=== PATIENT | female | born 1955 | race Caucasian/White ===

== ENCOUNTER → 2020-10-30 10:54 | Outpatient (BNVA) | payer BC, SELFPAY | PROVIDERS: Family Provider Family Medicine; Referring Provider Family Medicine; Visit Provider Orthopaedic Surgery | DX: M75.02 Adhesive capsulitis of left shoulder (principal) | CPT/HCPCS: 73030 ==

== ENCOUNTER 2020-11-06 06:00 | Outpatient (RCR) | payer BC, SELFPAY | END 2020-11-11 23:59 | disposition home or self-care (01) | LOC: MPT 06:00 | PROVIDERS: PCP Family Medicine; Referring Provider Orthopaedic Surgery; Visit Provider Orthopaedic Surgery | DX: M75.02 Adhesive capsulitis of left shoulder (principal) | CPT/HCPCS: 97110; 97161 ==

== ENCOUNTER 2020-11-12 06:00 | Outpatient (RCR) | payer BC, SELFPAY | END 2020-12-09 23:59 | disposition home or self-care (01) | LOC: MPT 06:00 | PROVIDERS: PCP Family Medicine; Referring Provider Orthopaedic Surgery; Visit Provider Orthopaedic Surgery | DX: M75.02 Adhesive capsulitis of left shoulder (principal) | CPT/HCPCS: 97110; 97140; G0283 ==

== ENCOUNTER 2020-12-10 06:00 | Outpatient (RCR) | payer BC, SELFPAY | END 2021-01-09 23:59 | disposition home or self-care (01) | LOC: MPT 06:00 | PROVIDERS: PCP Family Medicine; Referring Provider Orthopaedic Surgery; Visit Provider Orthopaedic Surgery | DX: M75.02 Adhesive capsulitis of left shoulder (principal) | CPT/HCPCS: 97110; 97140 ==

== ENCOUNTER → 2021-04-12 09:53 | Outpatient (BNVA) | payer BC, SELFPAY | PROVIDERS: PCP Family Medicine; Referring Provider Orthopaedic Surgery; Visit Provider Orthopaedic Surgery | DX: Z20.822 Contact with and (suspected) exposure to COVID-19 (principal) | CPT/HCPCS: 87635 ==

== ENCOUNTER 2024-04-07 09:39 | Emergency (ER) | payer BC, SELFPAY ==
[2024-04-07 09:40] VITALS: BP 161/71; PULSE 71; RESP 18; TEMP 36.8; O2SAT 97; BMI 37.9
--- NOTE | 2024-04-07 10:02 | ED_ITS ---
HPI - Back Pain/Injury General: Chief Complaint: Back Pain/Injury Stated Complaint: back pain Time Seen by Provider: 04/07/24 09:42 History of Present Illness: 68-year-old female with history of froze n shoulder, diabetes, hypertension and GERD who presents to the emergency room with left upper back pain. She says this started after a fall a couple days ago. She said she went to step over her large dog who stood up at the same time and it knocked her over. She already had issues with her shoulder/frozen shoulder and so had a hard time catching herself. She landed on that left side. No head injury. She has had no loss of consciousness. No altered mental status. No focal motor deficits. She has a bruise on her hand from the fall. She said she started out having pain in the shoulder and then it moved over to her neck and then started to go down her back. She said she was able to rub on her shoulder and neck and make the pain better but when it got into her back this morning she can rub it and it became very bad. Says it hurt with movement. It felt like a muscle cramp in her back. On exam she has tenderness in the left back muscles. No shortness of breath. No pain with breathing. Review of Systems Narrative: Constitutional symptoms: Negative except as documented in HPI. Skin symptoms: Negative except as documented in HPI. Eye symptoms: Negative except as documented in HPI. ENMT symptoms: Negative except as documented in HPI. Respiratory symptoms: Negative except as documented in HPI. Cardiovascular symptoms: Negative except as documented in HPI. Gastrointestinal symptoms: Negative except as documented in HPI. Genitourinary symptoms: Negative except as documented in HPI. Musculoskeletal symptoms: Negative except as documented in HPI. Neurologic symptoms: Negative except as documented in HPI. Psychiatric symptoms: Negative except as documented in HPI. Endocrine symptoms: Negative except as documented in HPI. [facility] ED PFSH: Medical History Asthma Breast cancer, left 2016/2016 Diabetes Hearing loss HTN (hypertension) Hyperlipidemia Peripheral neuropathy Type 2 diabetes mellitus Surgical History History of colonoscopy History of knee surgery Social History Smoking and tobacco/nicotine status: never used tobacco/nicotine Alcohol intake: never Substance/Drug Use: never Physical Exam Narrative: EXAM NARRATIVE: General: Alert, no acute distress. Skin: Warm, dry. Head: Normocephalic, atraumatic. Neck: Supple, trachea midline. Eye: Extraocular movements are intact. Ears, nose, mouth and throat: mucosa moist. Cardiovascular: Regular, Normal peripheral perfusion. Respiratory: Lungs are clear to auscultation, respirations are non-labored, breath sounds are equal, Symmetrical chest wall expansion. Gastrointestinal: Soft, Nontender, Non distended Musculoskeletal: Normal ROM, no deformity. Back: No bony tenderness. No step-offs. There is some midthoracic left-sided muscle tenderness to palpation. Neurological: Alert and oriented, No focal neurological deficit observed. Psychiatric: Cooperative, appropriate mood & affect. Course Vital Signs: Vital signs: Vital Signs Temperature 98.3 F 04/07/24 09:40 Pulse Rate 71 04/07/24 09:40 Respiratory Rate 18 04/07/24 09:40 Blood Pressure 161/71 04/07/24 09:40 Pulse Oximetry 97 04/07/24 09:40 Oxygen Delivery Me thod Room Air 04/07/24 09:40 MDM - Back Pain/Injury Medical Decision Making Assessment and plan: Thoracic back pain after a fall ?Decadron and Toradol low-dose here. Home on diclofenac and muscle relaxer. - Discharged home - Discussed plan with patient. Answered any questions. - Evaluation and treatment of this problem were appropriate in the emergency setting. All radiology interpretation(s) finalized by discharge Discharge Plan Discharge Patient Disposition: Home Clinical Impression: Thoracic back pain Qualifiers: Chronicity: acute Back pain laterality: left Qualified Code(s): M54.6 - Pain in thoracic spine Fall Qualifiers: Encounter type: initial encounter Qualified Code(s): W19.XXXA - Unspecified fall, initial encounter Condition: Stable Prescriptions: New cyclobenzaprine 10 mg tablet 10 mg PO Q8H Qty: 20 0RF diclofenac sodium 50 mg tablet,delayed release (DR/EC) 50 mg PO Q12H Qty: 20 0RF No Action (DME) pen needle, diabetic [Comfort EZ Pen [place]] 32 gauge x 3/16 needle See Rx Instructions .ROUTE .MEDSUPPLY Qty: 50 Rx Instructions: As directed nystatin 100,000 unit/gram cream 1 applic topical DAILY Humalog KwikPen Insulin 200 unit/mL (3 mL) insulin pen 40 unit SUBCUT BID Levemir FlexTouch U100 Insulin 100 unit/mL (3 mL) insulin pen 100 unit SUBCUT DAILY pantoprazole [Protonix] 40 mg tablet,delayed release (DR/EC) 40 mg PO DAILY losartan 100 mg tablet 100 mg PO DAILY gabapentin 300 mg capsule 300 mg PO DAILY amlodipine 5 mg tablet 5 mg PO DAILY naproxen 500 mg tablet 500 mg PO BID Qty: 60 0RF naproxen 500 mg tablet 500 mg PO BID Qty: 60 0RF Discharge Orders: Discharge ED (Routine); Ordered 04/07/24 Ordered By: Connie Mora Referrals: Jamal Alberto DO [Primary Care Provider] - Discharge Diet: Usual diet Discharge Activity: Increase activity as tolerated Patient Instructions: Pain Management Activity Restrictions/Additional Instructions: Thank you for choosing [facility] for your healthcare needs today. Please realize this is an emergency room and that we are providing you with a medical screening exam and this may not be complete and all inclusive of all the testing and or work up that you may need to determine your ailment or severity of your illness. You have been screened and evaluated and felt safe for discharge. Health conditions do change or evolve sometimes and as such it is important that you follow up with your Primary Doctor to be re checked, 3-5 days is a general good time frame for follow up. You are always welcome to return to the ED for re assessment if your symptoms are worsening or you have new concerns Coding Level of Care Code ED Clerk Operator for Leticia Morocho
[2024-04-07] MEDS: ketorolac 30 mg/mL INJ 15 MG IVP (10:04)
[2024-04-07 10:10] VITALS: BP 161/71; PULSE 63; O2SAT 97
== END 2024-04-07 10:39 | disposition home or self-care (01) ==
PROVIDERS: Emergency Provider Emergency Medicine; PCP Family Medicine
DX: M54.6 Pain in thoracic spine (principal); Z79.4 Long term (current) use of insulin; Z85.3 Personal history of malignant neoplasm of breast; E11.42 Type 2 diabetes mellitus with diabetic polyneuropathy; I10 Essential (primary) hypertension; E78.5 Hyperlipidemia, unspecified
CPT/HCPCS: 96374; 99285; J1885

== ENCOUNTER 2024-04-16 08:09 | Emergency (ER) | payer BC, SELFPAY ==
[2024-04-16] VITALS (8 sets, daily range): BP systolic 128–155; BP diastolic 63–82; PULSE 69–86; RESP 16–20; TEMP 36.5; O2SAT 94–95; BMI 37.9
--- NOTE | 2024-04-16 08:25 | XRR_ITS ---
PROCEDURE INFORMATION: Exam: XR Lumbosacral Spine Exam date and time: 04/16/2024 8:36 AM Age: 68 years old Clinical indication: Injury or trauma; Fall; Blunt trauma (contusions or hematomas); Additional info: Fall, back pain, h/o cancer TECHNIQUE: Imaging protocol: Radiologic exam of the lumbosacral spine. Views: 2 or 3 views. COMPARISON: CR XR hip RT 2-3V wo/w pel* [id number] 06/04/2018 10:44 AM FINDINGS: Bones/joints: No subluxations or compression fractures are noted. There is mild disc space narrowing with small osteophytes involving lower thoracic disc space levels as well as L4-L5 and L5-S1. There are degenerative changes involving the lumbar facets. SI joints are normal. Soft tissues: Unremarkable. XR/XR lumbar spine 2-3V* [id number] IMPRESSION: 1. Spondylosis.
[2024-04-16 08:39] LABS: Basophils % 0.7 %; Eosinophils # 0.3 10^3/uL (0.0-0.8); Eosinophils % 5.4 %; Hematocrit 40.4 % (36-47); Lymphocytes # 1.9 10^3/uL (0.8-4.8); Lymphocytes % 34.7 %; Mean Corpuscular HGB Conc 32.9 g/dL (30-55); Mean Platelet Volume 8.9 fL (7.4-10.4); Monocytes # 0.5 10^3/uL (0.2-0.9); Monocytes % 8.3 %; Neutrophils # 2.79 10^3/uL (1.8-7.7); Neutrophils % 50.2 %; Nucleated Red Blood Cells % 0 %; Platelet Count 266 10^3/cmm (157-399); Red Blood Count 4.44 10^6/uL (3.85-5.65); Red Cell Distribution Width 13.2 % (12.1-15.1); White Blood Count 5.56 10^3/uL (3.29-11.43)
[2024-04-16 08:49] LABS: Add Urine Microscopic? NO; Charge for UA Resulting for Rev
[2024-04-16 09:01] LABS: Urine Appearance Clear (CLEAR); Urine Color Yellow (Yellow); pH Urine 5 (5-7)
[2024-04-16 09:01] LABS: Alanine Aminotransferase 23 U/L (0-33); Albumin Level 3.8 g/dL (3.5-5.2); Alkaline Phosphatase 64 U/L (35-105); Aspartate Amino Transferase 50 U/L (0-32); Blood Urea Nitrogen 13 mg/dL (8-23); Calcium 8.8 mg/dL (8.5-10.5); Carbon Dioxide 25 mmol/L (22-29); Chloride 102 mmol/L (98-107); Creatinine Clr Calc Pharmacy 74.6593; Globulin 2.8 g/dL (1.3-4.6); Glomerular Filtration Rate 99.4 mL/min (90-130); Glucose 280 mg/dL (65-115); Osmolality Calculated 298 mOsm/kg (285-295); Sodium 139 mmol/L (136-145); Total Bilirubin 0.2 mg/dL (0.15-1.2); Total Protein 6.6 g/dL (6.6-8.7)
[2024-04-16 09:02] LABS: Bilirubin Urine Neg (Negative); Blood Urine Neg (Negative); Glucose Urine UA 4+ (Normal); Ketones Urine 1+ (Negative); Leukocyte Esterase Urine Negative (Negative); Nitrate Urine Negative (Negative); Protein Urine Neg (Negative); Urobilinogen Urine Norm (Negative)
[2024-04-16 09:12] LABS: Anion Gap 16.5 (5-19); Potassium 4.5 mmol/L (3.5-5.1)
[2024-04-16 09:46] LABS: INR 0.93 (0.8-1.2)
--- NOTE | 2024-04-16 10:30 | CTR_ITS ---
PROCEDURE INFORMATION: Exam: CT Abdomen And Pelvis With Contrast Exam date and time: 04/16/2024 10:56 AM Age: 68 years old Clinical indication: Abdominal pain; Generalized; Patient HX: PT here via pov with C/O blood in stool. PT reports having a bm this morning approx 0630 and states when she wiped it was bright red and the stool water was red. PT denies abd pain. PT reports a HX of diabetes. ; Additional info: Abdominal pain, fever TECHNIQUE: Imaging protocol: Computed tomography of the abdomen and pelvis with contrast. Radiation optimization: All CT scans at this facility use at least one of these dose optimization techniques: automated exposure control; mA and/or kV adjustment per patient size (includes targeted exams where dose is matched to clinical indication); or iterative reconstruction. Contrast material: OMNI 350; Contrast volume: 100 ml; Contrast route: INTRAVENOUS (IV); COMPARISON: CT abdomen w con* [id number] 04/20/2018 1:21 PM RADIATION DOSE METRICS: Total DLP (mGy-cm): 1056.28 FINDINGS: Lungs: Lung bases are clear as visualized. Liver: There is diffuse fatty infiltration of the liver. The liver is otherwise normal. Gallbladder and biliary ducts: Normal. No calcified stones. No ductal dilation. Pancreas: Normal. No ductal dilation. Spleen: Normal. No splenomegaly. Adrenal glands: Normal. No mass. Kidneys and ureters: Small benign-appearing renal cyst is noted on the left. The kidneys are otherwise normal in appearance. Stomach and bowel: Unremarkable. No obstruction. No mucosal thickening. Appendix: The appendix is not identified. Intraperitoneal space: Unremarkable. No free air. No significant fluid collection. Vasculature: The aorta is normal in caliber. There is calcified plaque involving the aorta and its branch vessels. There appear to be a few perigastric varices. Lymph nodes: Unremarkable. No enlarged lymph nodes. Urinary bladder: Unremarkable as visualized. Reproductive: Unremarkable as visualized. Bones/joints: Unremarkable. No acute fracture. Soft tissues: There is air/gas within the subcutaneous tissues of the lower anterior chest on the left. This is incompletely imaged but could be inflammatory or iatrogenic/postsurgical in origin. Recommend clinical correlation. CT/CT abdomen pelvis w con* [id number] IMPRESSION: 1. Incompletely imaged and indeterminate air/gas within the subcutaneous tissues of the lower left anterior chest wall. 2. Fatty infiltration of the liver. COMMENTS: Consistent with the [employer]'s Incidental Findings Committee white paper (J Am Tani Radiol 2018): Any incidental renal lesion less than 1 cm or classified as too small to characterize, or any incidental cystic renal lesion characterized as simple-appearing, is likely benign. No follow-up imaging is recommended for these lesions per consensus recommendations based on imaging criteria.
[2024-04-16] MEDS: iohexol 350 mg/mL 500 mL Btl (per mL) IV (11:01)
--- NOTE | 2024-04-16 11:23 | W.ED.GIBLEED ---
HPI - GI Bleed General: Chief complaint: GI Bleed Stated complaint: blood in stool Time Seen by Provider: 04/16/24 08:16 History of Present Illness: This patient is a 68 year old presenting with concerns regarding blood in her stool this morning. She reports a normal BM and then had another BM noting bright red blood on the toiler paper and in the water. She has not had issues with constipation or hard stools recently. She occasionally has BRB on the toilet paper when she does have a hard stool, but never enough to turn the water red. She denies abdominal pain. No urinary symptoms. No lightheadedness, no chest pain or shortness of breath. No fever. She has a history of breast cancer and had a bilateral mastectomy in November. She is on letrazole currently. She has not had any other chemo or radiation. She also had some some pain in her back since tripping over her dog a few weeks ago. She has had back pain and left leg numbness for some time - but it has been worse since the fall. She has symptoms when she stands for any length of time but not at rest. She reports a known heart murmur that she reports is from her mitral valve [facility] ED PFS: Medical History Breast cancer, left 2015/2016 Type 2 diabetes mellitus Hyperlipidemia Hearing loss Asthma Peripheral neuropathy Diabetes HTN (hypertension) Surgical History History of colonoscopy History of knee surgery Social History Smoking and tobacco/nicotine status: never used tobacco/nicotine Alcohol intake: never Substance/Drug Use: never Physical Exam Const: COMMON NORMALS: no acute distress, patient oriented x3, no limitations and alert GENERAL APPEARANCE: cooperative and comfortable HENMT: HEAD & SCALP: normal to inspection FACE & SINUS: normal facial exam Eye: GENERAL EYE: appearance normal, both eyes and all related structures Neck/C-Spine: COMMON NORMALS: supple, no meningeal signs and no JVD Chest: COMMONS NORMALS: normal inspection of the chest Resp: COMMON NORMALS: normal respiratory effort, No use of accessory muscles and clear to auscultation bilaterally AUSCULTATION: clear to auscultation bilaterally Cardio: COMMON NORMALS: no JVD, regular rate and regular rhythm RATE: regular rate RHYTHM: regular rhythm HEART SOUNDS: Murmur heart sound present diastolic GI: COMMON NORMALS: Normal to inspection, nondistended, normoactive bowel sounds present, Soft to palpation and non-tender INSPECTION: Yes normal to inspection AUSCULTATION: Yes normoactive bowel sounds PALPATION: Yes Soft to palpation Back/Pelvis: COMMON NORMALS: thoracic and lumbar spine normal to inspection LUMBAR SPINE/LOWER BACK: Yes lumbar spinal tenderness Lumbar spinal tenderness location: L4 and L5 and Yes paraspinal muscle tenderness Lumbar paraspinal muscle tenderness: left Extremity: COMMON NORMALS: normal to inspection Neuro: COMMON NORMALS: patient oriented x3, moves all extremities, no focal motor deficits and no sensory deficits noted SENSORIUM/ORIENTATION: Yes alert MENINGEAL SIGNS: Yes no meningeal signs SENSORY EXAM: Yes extremities (normal) MOTOR EXAM: 5/5 motor strength present throughout Psych: COMMON NORMALS: mental status grossly normal, cooperative and normal affect Skin: COMMON NORMALS: no rashes or lesions noted and turgor normal GENERAL SKIN EXAM: no rashes or lesions noted and turgor normal Course Vital Signs: Vital signs: Vital Signs Temperature 97.7 F 04/16/24 08:16 Pulse Rate 78 04/16/24 11:48 Respiratory Rate 20 H 04/16/24 11:48 Blood Pressure 143/74 04/16/24 11:48 Pulse Oximetry 95 04/16/24 11:48 Oxygen Delivery Me thod Room Air 04/16/24 11:30 MDM - GI Bleed Medical Decision Making BRP with normal stool this morning. no abdominal pain or constitutional symptoms. WOrse back pain than baseline after a fall a few weeks ago. Normal neuro exam. Concern for metastatic lesions given her history of cancer. Xrays of the spine did not show any concerning masses. CT abd pelvis also neg for mets or acute findings. Fatty liver. Sub cut air in chest wall in the area of the mastectomy surgeries and is not associated with any clinical findings or symptoms. Lab Data 04/16/24 08:30 04/16/24 08:30 Radiology Impressions Lumbar Spine X-Ray 04/16/24 08:25 IMPRESSION: 1. Spondylosis. Abdomen/Pelvis CT 04/16/24 10:30 IMPRESSION: 1. Incompletely imaged and indeterminate air/gas within the subcutaneous tissues of the lower left anterior chest wall. 2. Fatty infiltration of the liver. COMMENTS: Consistent with the [employer]'s Incidental Findings Committee white paper (J Am Tani Radiol 2018): Any incidental renal lesion less than 1 cm or classified as too small to characterize, or any incidental cystic renal lesion characterized as simple-appearing, is likely benign. No follow-up imaging is recommended for these lesions per consensus recommendations based on imaging criteria. Laboratory Results WBC 5.56 10^3/uL (3.29-11.43) 04/16/24 08:30 RBC 4.44 10^6/uL (3.85-5.65) 04/16/24 08:30 Hgb 13.30 g/dL (11.27-16.99) 04/16/24 08:30 Hct 40.4 % (36-47) 04/16/24 08:30 MCV 91.0 fl (85-98) 04/16/24 08:30 MCH 30.0 pg (27-33) 04/16/24 08:30 MCHC 32.9 g/dL (30-55) 04/16/24 08:30 RDW 13.2 % (12.1-15.1) 04/16/24 08:30 Plt Count 266 10^3/cmm (157-399) 04/16/24 08:30 MPV 8.9 fL (7.4-10.4) 04/16/24 08:30 Neut % (Auto) 50.2 % 04/16/24 08:30 Lymph % (Auto) 34.7 % 04/16/24 08:30 [place] % (Auto) 8.3 % 04/16/24 08:30 Eos % (Auto) 5.4 % 04/16/24 08:30 Baso % (Auto) 0.7 % 04/16/24 08:30 Neut # (Auto) 2.79 10^3/uL (1.8-7.7) 04/16/24 08:30 Lymph # (Auto) 1.9 10^3/uL (0.8-4.8) 04/16/24 08:30 [place] # (Auto) 0.5 10^3/uL (0.2-0.9) 04/16/24 08:30 Eos # (Auto) 0.3 10^3/uL (0.0-0.8) 04/16/24 08:30 Baso # (Auto) 0.0 10^3/uL (0.0-0.1) 04/16/24 08:30 Nucleated RBC % (auto) 0 % 04/16/24 08:30 Nucleated RBCs # 0.0 /100WBC 04/16/24 08:30 PT 12.70 SECONDS (12.1-14.9) 04/16/24 08:40 INR 0.93 (0.8-1.2) 04/16/24 08:40 Sodium 139 mmol/L (136-145) 04/16/24 08:30 Potassium 4.5 mmol/L (3.5-5.1) 04/16/24 08:30 Chloride 102 mmol/L (98-107) 04/16/24 08:30 Carbon Dioxide 25 mmol/L (22-29) 04/16/24 08:30 Anion Gap 16.5 (5-19) 04/16/24 08:30 BUN 13 mg/dL (8-23) 04/16/24 08:30 Creatinine 0.6 mg/dL (0.5-0.9) 04/16/24 08:30 GFR Calculation 99.4 mL/min (90-130) 04/16/24 08:30 Glucose 280 mg/dL (65-115) H 04/16/24 08:30 Calculated Osmolality 298 mOsm/kg (285-295) H 04/16/24 08:30 Calcium 8.8 mg/dL (8.5-10.5) 04/16/24 08:30 Total Bilirubin 0.2 mg/dL (0.15-1.2) 04/16/24 08:30 AST 50 U/L (0-32) H 04/16/24 08:30 ALT 23 U/L (0-33) 04/16/24 08:30 Alkaline Phosphatase 64 U/L (35-105) 04/16/24 08:30 Total Protein 6.6 g/dL (6.6-8.7) 04/16/24 08:30 Albumin 3.8 g/dL (3.5-5.2) 04/16/24 08:30 Globulin 2.8 g/dL (1.3-4.6) 04/16/24 08:30 Urine Color Yellow (Yellow) 04/16/24 08:40 Urine Appearance Clear (CLEAR) 04/16/24 08:40 Urine pH 5 (5-7) 04/16/24 08:40 Ur Specific [place] 1.020 (1.005-1.030) 04/16/24 08:40 Urine Protein Neg (Negative) 04/16/24 08:40 Urine Glucose (UA) 4+ (Normal) H 04/16/24 08:40 Urine Ketones 1+ (Negative) H 04/16/24 08:40 Urine Blood Neg (Negative) 04/16/24 08:40 Urine Nitrate Negative (Negative) 04/16/24 08:40 Urine Bilirubin Neg (Negative) 04/16/24 08:40 Urine Urobilinogen Norm mg/dL (Negative) 04/16/24 08:40 Ur Leukocyte Esterase Negative (Negative) 04/16/24 08:40 All radiology interpretation(s) finalized by discharge Discharge Plan Discharge Patient Disposition: Home Clinical Impression: Hematochezia, Low back pain radiating down leg, History of breast cancer Condition: Stable Prescriptions: No Action (DME) pen needle, diabetic [Comfort EZ Pen [place]] 32 gauge x 3/16 needle See Rx Instructions .ROUTE .MEDSUPPLY Qty: 50 Rx Instructions: As directed nystatin 100,000 unit/gram cream 1 applic topical DAILY Humalog KwikPen Insulin 200 unit/mL (3 mL) insulin pen 40 unit SUBCUT BID Levemir FlexTouch U100 Insulin 100 unit/mL (3 mL) insulin pen 100 unit SUBCUT DAILY pantoprazole [Protonix] 40 mg tablet,delayed release (DR/EC) 40 mg PO DAILY losartan 100 mg tablet 100 mg PO DAILY gabapentin 300 mg capsule 300 mg PO DAILY amlodipine 5 mg tablet 5 mg PO DAILY naproxen 500 mg tablet 500 mg PO BID Qty: 60 0RF naproxen 500 mg tablet 500 mg PO BID Qty: 60 0RF cyclobenzaprine 10 mg tablet 10 mg PO Q8H Qty: 20 0RF diclofenac sodium 50 mg tablet,delayed release (DR/EC) 50 mg PO Q12H Qty: 20 0RF Discharge Orders: Discharge ED (Routine); Ordered 04/16/24 Ordered By: Shawna Florez Referrals: Barbe,Jamal, DO [Primary Care Provider] - Discharge Diet: Usual diet Discharge Activity: Resume usual activity Patient Instructions: Opioid Safety, Pain Management Activity Restrictions/Additional Instructions: Follow up with your primary care provider to discuss the need for a colonoscopy to further evaluate the bleeding. Coding Level of Care Code ED Recreation Therapy Aide for Leticia Morocho
== END 2024-04-16 11:48 | disposition home or self-care (01) ==
PROVIDERS: Emergency Provider Emergency Medicine; PCP Family Medicine
DX: K92.1 Melena (principal); M54.50 Low back pain, unspecified; E11.42 Type 2 diabetes mellitus with diabetic polyneuropathy; E78.5 Hyperlipidemia, unspecified; J45.909 Unspecified asthma, uncomplicated; C50.912 Malignant neoplasm of unspecified site of left female breast; Z79.899 Other long term (current) drug therapy; Z79.4 Long term (current) use of insulin; Z90.13 Acquired absence of bilateral breasts and nipples
CPT/HCPCS: 72100; 74177; 80053; 81003; 82274; 85025; 85610; 87045; 87427; 87449; 99285; Q9967